=== PATIENT | female | born 2000 | race American Indian/Alaskan Native ===

== ENCOUNTER 2019-04-02 13:52 | Outpatient (CLI) | payer OTHER ==
[2019-04-02] MEDS ORDERED: FOLIC ACID20 MG PO (14:10)
[2019-04-02] MEDS ORDERED: IRON325 MG PO (14:10)
[2019-04-02] MEDS ORDERED: PRENATAL TABLE1 EAC1 PO (14:10)
== END 2019-04-02 18:15 | disposition home or self-care (01) ==
LOC: OBS/DEL 13:52
DX: O26.893 Other specified pregnancy related conditions, third trimester (principal); R10.2 Pelvic and perineal pain; Z34.03 Encounter for supervision of normal first pregnancy, third trimester